=== PATIENT | male | born 1955 | race Caucasian/White ===

== ENCOUNTER 2017-03-23 07:15 | Day surgery (SDC) | payer MEDICARE ==
[~2017-03-23 07:15] MED LIST: KETOROLAC TROMETHAMINE 0.45% 4 DROP/0.4 ML DROPERETTE OS PRN
[2017-03-23] MEDS: CYCLOPENTOLATE 0.2%/PHENYLEPHRINE 1% OPH SOLN 2 ML OS PRN ×3 (07:44→08:04)
[2017-03-23] MEDS: TROPICAMIDE 1% OPH SOLN 3 ML OS PRN ×3 (07:44→08:04)
[2017-03-23] MEDS: BESIFLOXACIN HCL 0.6% OPH SUSP 5 ML BOTTLE OS PRN ×3 (07:44→08:48)
[2017-03-23] MEDS: TETRACAINE HCL 0.5% OPH SOLN 2 ML OS PRN ×3 (07:45→08:27)
[2017-03-23] MEDS ORDERED: PHENYLEPHRINE/KETOROLAC 1%-0.3% 4 ML VIAL ONE (07:51)
[2017-03-23] MEDS ORDERED: TRYPAN BLUE 0.06 % OPH SOLN 0.5 ML DISP.SYRIN ONE (07:51)
[2017-03-23] MEDS ORDERED: LIDOCAINE 1% INJ-PF (10 MG/ML) 30 ML SDV ONE (07:51)
[2017-03-23] MEDS ORDERED: CHONDR SU A NA/HYALUR INTRAOC KIT (SURGICARE) ONE (07:51)
[2017-03-23] MEDS ORDERED: MIDAZOLAM 2 MG/2 ML INJ ONE (07:59)
--- NOTE | 2017-03-26 20:42 | [facility] OPERATIVE REPORT E ---
[facility] Operative Report NAME: JIM MEJIA AGE: 61Y DATE OF SURGERY: 03/23/2017 ROOM: PREOPERATIVE DIAGNOSIS: CATARACT, LEFT EYE. POSTOPERATIVE DIAGNOSIS: CATARACT, LEFT EYE. OPERATION: Cataract extraction with intraocular lens implant of the left eye. SURGEON: SIMON WARE M.D. ANESTHESIA: Topical. PROCEDURE: After obtaining appropriate consent, the patient's left eye was prepped and draped in sterile fashion as well as the surgeon in a sterile manner and cataract surgery was started. First a paracentesis blade was used to make a small side-port incision. Viscoelastic was used to inflate the anterior chamber. Next a 2.4 mm incision was made with the paracentesis blade. A continuous capsulorrhexis incision was made using a cystotome and Utrata forceps. Following this, hydrodissection was carried out to make the lens fully loose and mobile and it was rotated 90 degrees. Following this, a xoykqr-bpy-ekdpeuf technique was used to phacoemulsify the lens with a CDE of 10.6. The remaining cortex was removed with irrigation/aspiration. Provisc was instilled into the capsular bag to inflate the bag. A SN60WF, 21.0 diopter lens was placed. The remaining viscoelastic material was removed with irrigation/aspiration. Following this, a 10-0 nylon suture was used to close the incision and it was found to be watertight. Vigamox was instilled in the eye and a protective shield was placed over the eye. The patient returned to the postoperative recovery in stable condition. DICTATING PHYSICIAN: SIMON WARE M.D. [id number] PHY#: [id number] ID: [id number] JOB#: [id number] ACCT: [id number] cc:SIMON WARE M.D. >
--- NOTE | 2017-03-26 21:32 | DISCHARGE SUMMARY E ---
Discharge Summary NAME: JIM MEJIA : 1955 AGE: 61Y ADMITTED: 03/23/2017 DISCHARGED: 03/23/2017 HISTORY: A 61-year-old patient who underwent cataract extraction of the left eye. DIAGNOSIS: Cataract, left eye. HOSPITAL COURSE AND DISCHARGE INSTRUCTIONS: He underwent surgery because he was having difficulty distinguishing signs, people, light, and cars. He should be on a regular diet. No bending at the waist. No heavy lifting. He should use his Besivance, Ilevro, and Durezol at 3:00 p.m. at 8:00 p.m. and sleep with a rigid shield, and I will see him for a 1-day postoperative tomorrow. DICTATING PHYSICIAN: SIMON WARE M.D. [id number] PHY#: [id number] ID: [id number] JOB#: [id number] ACCT: [id number] cc:SIMON WARE M.D. >
== END 2017-03-23 09:35 | disposition home or self-care (01) ==
LOC: SC 07:15
PROVIDERS: ATTEND Internal Medicine
PROC: 08RK3JZ Replacement of Left Lens with Synthetic Substitute, Percutaneous Approach (ICD-10-PCS; principal; 2017-03-23 08:30)
DX: H25.89 Other age-related cataract (principal); H25.811 Combined forms of age-related cataract, right eye; E11.319 Type 2 diabetes mellitus with unspecified diabetic retinopathy without macular edema; I10 Essential (primary) hypertension; F17.210 Nicotine dependence, cigarettes, uncomplicated; K21.9 Gastro-esophageal reflux disease without esophagitis; M19.90 Unspecified osteoarthritis, unspecified site; I51.9 Heart disease, unspecified; G57.90 Unspecified mononeuropathy of unspecified lower limb; Z79.82 Long term (current) use of aspirin; Z79.899 Other long term (current) drug therapy; Z79.84 Long term (current) use of oral hypoglycemic drugs
CPT/HCPCS: 66984; 82962; V2632; J2250; J3490 ×2; A9270; C9447; 142

== ENCOUNTER 2017-04-13 07:08 | Day surgery (SDC) | payer MEDICARE ==
[~2017-04-13 07:08] MED LIST changes: +KETOROLAC TROMETHAMINE 0.45% 4 DROP/0.4 ML DROPERETTE OD PRN; -KETOROLAC TROMETHAMINE 0.45% 4 DROP/0.4 ML DROPERETTE OS PRN
[2017-04-13] MEDS: CYCLOPENTOLATE 0.2%/PHENYLEPHRINE 1% OPH SOLN 2 ML OD PRN ×3 (07:47→08:05)
[2017-04-13] MEDS: TROPICAMIDE 1% OPH SOLN 3 ML OD PRN ×3 (07:47→08:05)
[2017-04-13] MEDS: TETRACAINE HCL 0.5% OPH SOLN 2 ML OD PRN ×3 (07:48→08:25)
[2017-04-13] MEDS: BESIFLOXACIN HCL 0.6% OPH SUSP 5 ML BOTTLE OD PRN ×4 (07:48→08:47)
[2017-04-13] MEDS ORDERED: EPINEPHRINE INJ/PF 1 MG/1 ML AMPULE ONE (07:57)
[2017-04-13] MEDS ORDERED: LIDOCAINE 1% INJ-PF (10 MG/ML) 30 ML SDV ONE (07:58)
[2017-04-13] MEDS ORDERED: CHONDR SU A NA/HYALUR INTRAOC KIT (SURGICARE) ONE (07:58)
[2017-04-13] MEDS ORDERED: MIDAZOLAM 2 MG/2 ML INJ ONE (08:01)
--- NOTE | 2017-04-13 20:48 | [facility] DISCHARGE SUMMARY E ---
[facility] Discharge Summary NAME: JIM MEJIA AGE: 61Y ADMITTED: 04/13/2017 DISCHARGED: 04/13/2017 HOSPITAL COURSE: This is a 61-year-old male who underwent cataract extraction of the right eye. DIAGNOSIS: CATARACT, RIGHT EYE. He underwent surgery because he was having difficulty reading. DISCHARGE INSTRUCTIONS: He is to be on a regular diet. No bending at his waist, no heavy lifting. He should use Besivance, Ilevro, and Durezol at 3 p.m. and 8 p.m. and sleep with a rigid shield. I will see him for his 1 day postoperative tomorrow. DICTATING PHYSICIAN: SIMON WARE M.D. [id number] PHY#: [id number] ID: [id number] JOB#: [id number] ACCT: [id number] cc:SIMON WARE M.D. >
--- NOTE | 2017-04-13 20:48 | [facility] OPERATIVE REPORT E ---
[facility] Operative Report NAME: JIM MEJIA AGE: 61Y DATE OF SURGERY: 04/13/2017 ROOM: PREOPERATIVE DIAGNOSIS: CATARACT, RIGHT EYE. POSTOPERATIVE DIAGNOSIS: CATARACT, RIGHT EYE. OPERATION: Cataract extraction with intraocular lens implant of the right eye. SURGEON: SIMON WARE M.D. ANESTHESIA: Topical. PROCEDURE: After obtaining appropriate consent, the patient's right eye was prepped and draped in sterile fashion as well as the surgeon in a sterile manner and cataract surgery was started. First a paracentesis blade was used to make a small side-port incision. Viscoelastic was used to inflate the anterior chamber. Next a 2.4 mm incision was made with the paracentesis blade. A continuous capsulorrhexis incision was made using a cystotome and Utrata forceps. Following this hydrodissection was carried out to make the lens fully loose and mobile and it was rotated 90 degrees. Following this, a kmpsiv-pjv-bkdxpnu technique was used to phacoemulsify the lens with a CDE of 5.60. The remaining cortex was removed with irrigation/aspiration. Provisc was instilled into the capsular bag to inflate the bag. A SN60WF, 29.0 diopter lens was placed. The remaining viscoelastic material was removed with irrigation/aspiration. Following this, a 10-0 nylon suture was used to close the incision and it was found to be watertight. Vigamox was instilled in the eye and a protective shield was placed over the eye. The patient returned to the postoperative recovery in stable condition. DICTATING PHYSICIAN: SIMON WARE M.D. [id number] PHY#: [id number] 2018 ID: [id number] JOB#: [id number] ACCT: [id number] cc:SIMON WARE M.D. >
== END 2017-04-13 09:32 | disposition home or self-care (01) ==
LOC: SC 07:08
PROVIDERS: ATTEND Internal Medicine
PROC: 08RJ3JZ Replacement of Right Lens with Synthetic Substitute, Percutaneous Approach (ICD-10-PCS; principal; 2017-04-13 08:30)
DX: H25.811 Combined forms of age-related cataract, right eye (principal); Z96.1 Presence of intraocular lens; E11.9 Type 2 diabetes mellitus without complications; K21.9 Gastro-esophageal reflux disease without esophagitis; F17.210 Nicotine dependence, cigarettes, uncomplicated; I10 Essential (primary) hypertension; Z79.899 Other long term (current) drug therapy; Z79.84 Long term (current) use of oral hypoglycemic drugs
CPT/HCPCS: 66984; 82962; V2632; J2250; J3490 ×2; A9270; J0171; 142

== ENCOUNTER → 2017-09-14 | Outpatient (CLI) | payer MEDICARE ==
--- NOTE | 2017-09-14 13:17 | RADIOLOGY REPORT (SQ) ---
EXAM DESCRIPTION: LUMBAR SPINE 2 VIEWS COMPLETED DATE/TIME: 09/14/2017 12:06 pm REASON FOR STUDY: OTHER DORSALGIA R07.81 PLEURODYNIA M54.89 OTHER DORSALGIA COMPARISON: None. NUMBER OF VIEWS: Two views. TECHNIQUE: AP and lateral radiographic images acquired of the lumbar spine. LIMITATIONS: None. FINDINGS: MINERALIZATION: Normal. SEGMENTATION: Normal. No transitional anatomy. ALIGNMENT: Normal. VERTEBRAE: Maintained height. No fracture or worrisome bone lesion. DISCS: High-grade disc space loss of height at L2-3, moderate disc space loss of height throughout th e remainder of the lumbar spine POSTERIOR ELEMENTS: Bilateral moderate facet arthropathy at L2-3, L3-4, L4-5. HARDWARE: None in the spine. PARASPINAL SOFT TISSUES: Normal. PELVIS: Not included in the field of view. Mild bilateral SI joint sclerosis. OTHER: No other significant finding. IMPRESSION: Diffuse degenerative disc changes as above. TECHNICAL DOCUMENTATION: JOB ID: [id number] [employer]- All Rights Reserved Reading location - IP/workstation name: [email or web address]
--- NOTE | 2017-09-14 14:36 | RADIOLOGY REPORT (SQ) ---
EXAM DESCRIPTION: CHEST PA/LATERAL COMPLETED DATE/TIME: 09/14/2017 12:06 pm REASON FOR STUDY: PLEURODYNIA COMPARISON: None. EXAM PARAMETERS: NUMBER OF VIEWS: two views TECHNIQUE: Digital Frontal and Lateral radiographic views of the chest acquired. RADIATION DOSE: NA LIMITATIONS: none FINDINGS: LUNGS AND PLEURA: No opacities, masses or pneumothorax. No pleural effusion. MEDIASTINUM AND HILAR STRUCTURES: No masses or contour abnormalities. HEART AND VASCULAR STRUCTURES: Heart normal size. No evidence for failure. BONES: No acute findings. HARDWARE: None in the chest. OTHER: No other significant finding. IMPRESSION: NO SIGNIFICANT RADIOGRAPHIC FINDING IN THE CHEST. TECHNICAL DOCUMENTATION: JOB ID: [id number] [employer]- All Rights Reserved Reading location - IP/workstation name: [email or web address]
== END ==
LOC: OD 11:36
PROVIDERS: ATTEND Physician Assistant Medical
DX: R07.81 Pleurodynia (principal); M54.5 Low back pain
CPT/HCPCS: 71046; 72100

== ENCOUNTER 2017-09-22 15:16 | Emergency (ER) | payer MEDICARE ==
[2017-09-22 16:43] LABS: ABSOLUTE BASOPHILS # (AUTO) 0.1 10^3/uL (0.0-0.2); ABSOLUTE EOSINOPHILS # (AUTO) 0.2 10^3/uL (0.0-0.6); ABSOLUTE LYMPHOCYTES (AUTO) 3.4 10^3/uL (0.5-4.7); ABSOLUTE MONOCYTES (AUTO) 0.9 10^3/uL (0.1-1.4); ABSOLUTE NEUT (AUTO) 5.9 10^3/uL (1.7-8.2); BASOPHILS % (AUTO) 0.8 % (0-2); EOSINOPHILS % (AUTO) 2.2 % (0-6); HEMATOCRIT 41.3 % (37.9-51.0); HEMOGLOBIN 14.1 g/dL (13.5-17.0); LYMPHOCYTES % (AUTO) 32.6 % (13-45); MEAN CORPUSCULAR HEMOGLOBIN 29.3 pg (27.0-33.4); MEAN CORPUSCULAR HGB CONC 34.1 g/dL (32.0-36.0); MEAN CORPUSCULAR VOLUME 86 fl (80-97); MONOCYTES % (AUTO) 8.3 % (3-13); PLATELET COUNT 233 10^3/uL (150-450); RED BLOOD COUNT 4.81 10^6/uL (4.35-5.55); RED CELL DISTRIBUTION WIDTH 13.5 % (11.5-14.0); SEGMENTED NEUTROPHILS % (AUTO) 56.1 % (42-78); TOTAL CELLS COUNTED % (AUTO) 100 %; WHITE BLOOD COUNT 10.5 10^3/uL (4.0-10.5)
--- NOTE | 2017-09-22 16:52 | ER Document Report ---
ED General - General Mode of Arrival: Ambulatory Information source: Patient TRAVEL OUTSIDE OF THE [place] IN LAST 30 DAYS: No <RASTA LOYOLA - Last Filed: 09/22/17 18:54> <VERN ESTEBAN - Last Filed: 09/22/17 19:24> - General Chief Complaint: Abdominal Pain Stated Complaint: ABDOMINAL PAIN Time Seen by Provider: 09/22/17 16:13 Notes: 62 y.o male with a PMHx of GERD, HTN, type 2 DM, and one tonsillectomy. Pt presents to the ED with worsening abd pain of onset 3 weeks ago. Pt reports that yesterday he decided to get blood work done by [facility]. Pt reports that his blood work resulted with high lipase enzymes indicating pancreatitis and was told to come to the ED. Pt states that his pain worsens after lying down for a while. He reports taking Ibuprofen for his pain without much relief. (RASTA LOYOLA) - Related Data Allergies/Adverse Reactions: No Known Allergies Allergy (Verified 03/23/17 07:39) Past Medical History - General Information source: Patient - Social History Smoking Status: Current Every Day Smoker Cigarette use (# per day): Yes - 3/4 pack Chew tobacco use (# tins/day): No Smoking Education Provided: Yes Frequency of alcohol use: None Drug Abuse: None Family History: Other - Unknown - Past Medical History Cardiac Medical History: Reports: Hx Hypertension Denies: Hx Heart Attack Pulmonary Medical History: Denies: Hx Asthma Neurological Medical History: Denies: Hx Cerebrovascular Accident, Hx Seizures GI Medical History: Reports: Hx Hiatal Hernia. Denies: Hx Hepatitis, Hx Ulcer Infectious Medical History: Denies: Hx Hepatitis Past Surgical History: Denies: Hx Open Heart Surgery, Hx Pacemaker <RASTA LOYOLA - Last Filed: 09/22/17 18:54> Review of Systems - Review of Systems Constitutional: See HPI, Other - abnormal lab results EENT: No symptoms reported Cardiovascular: No symptoms reported Respiratory: No symptoms reported Gastrointestinal: See HPI, Abdominal pain Genitourinary: No symptoms reported Male Genitourinary: No symptoms reported Musculoskeletal: No symptoms reported Skin: No symptoms reported Hematologic/Lymphatic: No symptoms reported Neurological/Psychological: No symptoms reported -: Yes All other systems reviewed and negative <RASTA LOYOLA - Last Filed: 09/22/17 18:54> Physical Exam <RASTA LOYOLA - Last Filed: 09/22/17 18:54> <VERN ESTEBAN - Last Filed: 09/22/17 19:24> - Vital signs Vitals: Temp Pulse BP Pulse Ox 98.0 F 57 L 150/86 H 96 09/22/17 15:43 09/22/17 15:43 09/22/17 15:43 09/22/17 15:43 - Notes Notes: General: Alert, appears well. HEENT: Normocephalic. Atraumatic. PERRL. Extraocular movements intact. Oropharynx clear. Neck: Supple. Non-tender. Respiratory: No respiratory distress. Clear and equal breath sounds bilaterally. Cardiovascular: Regular rate and rhythm. Abdominal: Obese, soft. No distension. Normal Bowel Sounds. Exquisitely tender to palpation over the LT anterior inferior ribs and inferior sternum. After discovering the area of his tenderness and going back to abd, there was no tenderness to palpation under the ribs. Back: Non-tender. No deformity or step off. Tenderness to palpation on posterior chest wall all the way around to the thoracic spine around T4-T8, although most tender anteriorly as mentioned above. Extremities: Moves all four extremities. Upper extremities: Normal inspection. Normal ROM. Lower extremities: Normal inspection. No edema. Normal ROM. Neurological: Normal cognition. AAOx4. Normal speech. Psychological: Normal affect. Normal Mood. Skin: Warm. Dry. Normal color. (RASTA LOYOLA) Course - Laboratory Result Diagrams: 09/22/17 16:30 09/22/17 16:30 <RASTA LOYOLA - Last Filed: 09/22/17 18:54> - Laboratory Result Diagrams: 09/22/17 16:30 09/22/17 16:30 <VERN ESTEBAN - Last Filed: 09/22/17 19:24> - Re-evaluation Re-evalutation: 09/22/17 18:43 After talking to patient about the relatedness of his pain to musculoskeletal pain, he admits lifting furniture into the back of his truck about 3 days before onset of his pain. Pt understands diagnoses and has no further questions at this time. (RASTA LOYOLA) 09/22/17 19:14 The patient has reproducible musculoskeletal chest wall pain with an identifiable trigger which involved helping put a couch on a pickup truck bed about 4 days before the pain started. Double contrast a CT scan of the abdomen and pelvis was unremarkable. The patient's lipase today is less than one half the upper limit of normal at this lab. The records from [facility] yesterday showed a lipase that was 4.8 times the upper limit of normal. That is the only thing that does not make sense in this entire evaluation. He will be given copies of his lab work to follow-up with his primary care provider next week. He will be prescribed pain medication to take for his pain which is not responding to Motrin 800 mg dosing. 09/22/17 19:24 The patient's blood pressure was elevated at discharge. He does have hypertension and is on medication. He has been here since early this morning. Is advised to take his medications when he gets home, check his blood pressures , and follow-up with his primary care doctor to discuss his blood pressure if it remains elevated. (VERN ESTEBAN) - Vital Signs Vital signs: Temp Pulse Resp BP Pulse Ox 98.1 F 55 L 186/83 H 96 09/22/17 19:12 09/22/17 19:12 09/22/17 19:12 09/22/17 19:12 - Laboratory Laboratory results interpreted by nj: 09/22/17 09/22/17 09/22/17 16:30 16:30 17:07 Carbon Dioxide 34 H Glucose 167 H Creatine Kinase 40 L Urine Protein 100 H Urine Ketones TRACE H Urine Urobilinogen 4.0 H Discharge <RASTA LOYOLA - Last Filed: 09/22/17 18:54> <VERN ESTEBAN - Last Filed: 09/22/17 19:24> - Discharge Clinical Impression: Rib pain on left side Condition: Stable Disposition: HOME, SELF-CARE Additional Instructions: Rib Muscle Strain: You have strained the muscles in your left thorax. This often occurs with strenuous exertion, or during an injury that suddenly stretches the muscle. The seriousness of a strain varies. Some strains heal within days, others cause problems for months. X-rays cannot show a muscle strain. X-rays are taken only if symptoms suggest that a fracture could be present. The usual treatment of a muscle strain is rest. Take the pain medication as prescribed if needed. Moist heat to the painful rib muscles may be helpful. Try sleeping in an easy chair to see if that helps the discomfort. Follow-up with your doctor next week for reevaluation and take copies of your lab work. RETURN TO THE EMERGENCY ROOM IF ANY NEW OR WORSENING SYMPTOMS. Prescriptions: Oxycodone HCl/Acetaminophen [Percocet 5-325 mg Tablet] 1 - 2 tab PO ASDIR PRN # 20 tablet PRN Reason: Scribe Attestation: 09/22/17 18:01 I personally performed the services described in the documentation, reviewed and edited the documentation which was dictated to the scribe in my presence, and it accurately records my words and actions. (VERN ESTEBAN) Scribe Documentation - Scribe Written by Corine:: Corine Gabriel 09/22/17 1719 acting as scribe for :: Shweta <RASTA LOYOLA - Last Filed: 09/22/17 18:54>
[2017-09-22 16:56] LABS: ALANINE AMINOTRANSFERASE 35 U/L (21-72); ALBUMIN 4.2 g/dL (3.5-5.0); ALKALINE PHOSPHATASE 68 U/L (38-126); ANION GAP 11 (5-19); ASPARTATE AMINO TRANSFERASE 32 U/L (17-59); BILIRUBIN,DIRECT 0.4 mg/dL (0.0-0.4); BILIRUBIN,TOTAL 0.5 mg/dL (0.2-1.3); BLOOD UREA NITROGEN 13 mg/dL (7-20); CALCIUM 9.4 mg/dL (8.4-10.2); CARBON DIOXIDE 34 mmol/L (22-30); CHLORIDE 100 mmol/L (98-107); GLUCOSE 167 mg/dL (75-110); LIPASE 137.4 U/L (23-300); POTASSIUM 3.7 mmol/L (3.6-5.0); SODIUM 144.6 mmol/L (137-145); TOTAL PROTEIN 7.3 g/dL (6.3-8.2)
[2017-09-22] MEDS ORDERED: KETOROLAC TROMETHAMINE INJ/PF 30 MG/1 ML SDV IV ONE (17:17)
[2017-09-22] MEDS ORDERED: NORMAL SALINE 1000 ML 1,000 ML IV ONE (17:17)
[2017-09-22 17:19] LABS: APPEARANCE,URINE CLEAR; BILIRUBIN,URINE NEGATIVE (NEGATIVE); GLUCOSE, URINE NEGATIVE (NEGATIVE); KETONES,URINE TRACE mg/dL (NEGATIVE); LEUKOCYTE ESTERASE,URINE NEGATIVE (NEGATIVE); NITRITE,URINE NEGATIVE (NEGATIVE); PROTEIN,URINE 100 mg/dL (NEGATIVE)
[2017-09-22 17:23] LABS: COLOR,URINE YELLOW
[2017-09-22 17:39] LABS: CREATINE KINASE 40 U/L (55-170)
[2017-09-22 19:20] VITALS: BP 186/83
== END 2017-09-22 19:19 | disposition home or self-care (01) ==
LOC: ER 15:16
DX: R07.81 Pleurodynia (principal); R10.9 Unspecified abdominal pain; R74.8 Abnormal levels of other serum enzymes; I10 Essential (primary) hypertension; E11.9 Type 2 diabetes mellitus without complications; F17.210 Nicotine dependence, cigarettes, uncomplicated
CPT/HCPCS: 99284; 96361; 96374; 36415; 82550; 83690; 85025; 80053; 81001; 82565; 74160; J1885; J7030

== ENCOUNTER → 2017-09-22 | Outpatient (CLI) | payer MEDICARE ==
--- NOTE | 2017-09-22 08:49 | RADIOLOGY REPORT (SQ) ---
EXAM DESCRIPTION: CT ABDOMEN WITH IV ORAL CONT COMPLETED DATE/TIME: 09/22/2017 8:39 am REASON FOR STUDY: LLQ PAIN (R10.32), ABD PAIN (R10.9), LUQ PAIN (R10.12) R10.12 LEFT UPPER QUADRANT PAIN R10.9 UNSPECIFIED ABDOMINAL PAIN R10.32 LEFT LOWER QUADRANT PAIN COMPARISON: None. TECHNIQUE: CT scan of the abdomen performed with intravenous and with oral contrast using helical sc anning technique with dynamic intravenous contrast injection. Images reviewed with lung, soft tissue, and bone windows. Reconstructed coronal and sagittal MPR images reviewed. Delayed images for evaluat ion of the urinary system also acquired and evaluated. All images stored on PACS. All CT scanners at this facility use dose modulation, iterative reconstruc tion, and/or weight based dosing when appropriate to reduce radiation dose to as low as reasonably ac hievable (ALARA). [facility]: Dose Right [facility]: CareDose [facility]: Dose Right [facility]: Teradose 4D [facility]: Vidible CONTRAST TYPE AND DOSE: contrast/concentration: Isovue 370.00 mg/ml; Total Contrast Delivered: 99.0 ml; Total Saline Delivered: 72.0 ml RENAL FUNCTION: Creatinine 1.0. RADIATION DOSE: CT Rad equipment meets quality standard of care and radiation dose reduction techniq ues were employed. CTDIvol: 16.4 - 19.4 mGy. DLP: 1448 mGy-cm. . LIMITATIONS: None. FINDINGS: LOWER CHEST: No significant findings. No nodules or infiltrates. LIVER: Normal size. No masses. No dilated ducts. SPLEEN: Normal size. No focal lesions. PANCREAS: No masses. No significant calcifications. No adjacent inflammation or peripancreatic fluid collections. Pancreatic duct not dilated. GALLBLADDER: No identified stones by CT criteria. No inflammatory changes to suggest cholecystitis. ADRENAL GLANDS: No significant masses or asymmetry. RIGHT KIDNEY AND URETER: No solid masses. No significant calcifications. No hydronephrosis or hyd roureter. LEFT KIDNEY AND URETER: No solid masses. No significant calcifications. No hydronephrosis or hydr oureter. AORTA AND VESSELS: Vascular calcifications. No aneurysm. No dissection. Renal arteries, SMA, celiac without stenosis. RETROPERITONEUM: No retroperitoneal adenopathy, hemorrhage or masses. BOWEL AND PERITONEAL CAVITY: No masses or inflammatory changes. No free fluid or peritoneal masses. APPENDIX: Not visualized. ABDOMINAL WALL: No masses. No hernias. BONES: No significant or acute findings. Degenerative changes in the spine. OTHER: No other significant finding. IMPRESSION: NORMAL CT OF THE ABDOMEN WITH INTRAVENOUS CONTRAST. TECHNICAL DOCUMENTATION: JOB ID: [id number] Quality ID # [id number]: Final reports with documentation of one or more dose reduction techniques (e.g., Au tomated exposure control, adjustment of the mA and/or kV according to patient size, use of iterative reconstruction technique) 2010 [employer]- All Rights Reserved Reading location - IP/workstation name: [email or web address]
== END ==
LOC: RAD 07:27
PROVIDERS: ATTEND Physician Assistant Medical
DX: R10.12 Left upper quadrant pain (principal); R10.9 Unspecified abdominal pain; R10.32 Left lower quadrant pain
CPT/HCPCS: 74160; 82565

== ENCOUNTER → 2017-10-04 | Outpatient (CLI) | payer MEDICARE ==
--- NOTE | 2017-10-04 17:17 | RADIOLOGY REPORT (SQ) ---
EXAM DESCRIPTION: CT CHEST WITH COMPLETED DATE/TIME: 10/04/2017 3:17 pm REASON FOR STUDY: R07.9 CHEST PAIN, UNSPECIFIED R07.9 CHEST PAIN, UNSPECIFIED COMPARISON: CT abdomen 09/22/2017. Chest films 09/14/2017. TECHNIQUE: CT scan of the chest performed using helical scanning technique with dynamic intravenous contrast injection. Images reviewed with lung, soft tissue and bone windows. Reconstructed coronal and sagittal MPR images reviewed. All images stored on PACS. All CT scanners at this facility use dose modulation, iterative reconstruction, and/or weight based d osing when appropriate to reduce radiation dose to as low as reasonably achievable (ALARA). [facility]: Dose Right [facility]: CareDose [facility]: Dose Right [facility]: Teradose 4D [facility]: Enclarity CONTRAST TYPE AND DOSE: contrast/concentration: Isovue 370.00 mg/ml; Total Contrast Delivered: 80.0 ml; Total Saline Delivered: 55.0 ml RENAL FUNCTION: Creatinine 0.81 RADIATION DOSE: CT Rad equipment meets quality standard of care and radiation dose reduction techniq ues were employed. CTDIvol: 16.4 mGy. DLP: 695 mGy-cm. . LIMITATIONS: None. FINDINGS: LUNGS AND PLEURA: Mild areas of linear scar in the right middle lobe and lingula. Mild gr ound-glass subpleural densities in the upper lobes. Acuity and significance indeterminate, but poten tially reflecting active treatable disease. No pleural disease. No abnormal gas collections. HILAR AND MEDIASTINAL STRUCTURES: No identified masses or abnormal nodes. HEART AND VASCULAR STRUCTURES: Cardiac enlargement. No pericardial effusion. Marked coronary calcif ication. No aortic aneurysm or dissection. No central pulmonary embolus. HARDWARE: None in the chest. UPPER ABDOMEN: Small right adrenal adenoma, subcentimeter. Otherwise unremarkable upper abdominal st ructures. THYROID AND OTHER SOFT TISSUES: No masses. No adenopathy. BONES: No significant finding. OTHER: No other significant finding. IMPRESSION: 1. Mild ground-glass densities in the upper lobes, potentially reflecting active lung d isease. Otherwise indeterminate. Lungs otherwise look clear. No typical consolidating pneumonia. 2. No aortic aneurysm or dissection or gross central pulmonary embolus. 3. Cardiac enlargement and coronary calcification. TECHNICAL DOCUMENTATION: JOB ID: [id number] Quality ID # [id number]: Final reports with documentation of one or more dose reduction techniques (e.g., Au tomated exposure control, adjustment of the mA and/or kV according to patient size, use of iterative reconstruction technique) 2010 [employer]- All Rights Reserved Reading location - IP/workstation name: [email or web address]
== END ==
LOC: RAD 15:05
PROVIDERS: ATTEND Physician Assistant Medical
DX: R07.9 Chest pain, unspecified (principal)
CPT/HCPCS: 71260

== ENCOUNTER 2018-03-26 07:46 | Day surgery (SDC) | payer MEDICARE ==
[~2018-03-26 07:46] MED LIST changes: -KETOROLAC TROMETHAMINE 0.45% 4 DROP/0.4 ML DROPERETTE OD PRN; +PROPOFOL INJ 200 MG/20 ML VIAL IV ONE
[2018-03-26 10:07] VITALS: BP 154/72
--- NOTE | 2018-03-26 12:53 | Operative Report ---
Operative Report DATE OF SURGERY: 03/26/18 Operative Report: The risks, benefits and alternatives of the procedure including the risk of bleeding, perforation requiring surgery are explained to the patient in detail and informed consent is obtained. The patient is taken back to the endoscopy suite and placed in the left, lateral decubital position. Timeout was called. Propofol medication is administered. A rectal examination is done which did not reveal any masses, tears or fissures. An Olympus videoscope was inserted into the patient's rectum. The scope was then carefully advanced all the way to the cecum. The cecum was identified by the usual anatomical landmarks including the ileocecal valve as well as the appendiceal office. Photodocumentation is obtained. The scope was then sequentially pulled back via the various segments of the colon including the ascending colon, hepatic flexure, transverse colon, splenic flexure, descending colon and finally into the rectosigmoid portions of the colon. Retroflexion maneuvers performed. PREOPERATIVE DIAGNOSIS: Gastroesophageal reflux disease, personal history of polyps POSTOPERATIVE DIAGNOSIS: Possible lipoma in the transverse colon area status post biopsy biopsies to confirm. Rectal polyps x2 removed via snare polypectomy. Internal hemorrhoids. Gastritis status post biopsy rule out Helicobacter pylori. Esophagitis status post biopsy rule out Casas's esophagus OPERATION: Colonoscopy with snare polypectomy. Colonoscopy with biopsy. EGD with biopsy SURGEON: TICO SMALLWOOD ANESTHESIA: LMAC TISSUE REMOVED OR ALTERED: As noted above. COMPLICATIONS: None. ESTIMATED BLOOD LOSS: None. INTRAOPERATIVE FINDINGS: As noted above. PROCEDURE: Patient tolerated the procedure well. No immediate postprocedure complications are noted. Patient discharged in good condition. Discharge date 03/27/2018. Discharge diet: Regular. Discharge activity: Regular. 2-3-week follow-up to discuss findings. Patient is instructed to call the office or proceed to the emergency room should there be any further problems or questions. 3-year surveillance colonoscopy. We will wait on the pathology.
== END 2018-03-26 10:10 | disposition home or self-care (01) ==
LOC: END 07:46
PROVIDERS: ATTEND Internal Medicine Gastroenterology
DX: Z12.11 Encounter for screening for malignant neoplasm of colon (principal); K21.0 Gastro-esophageal reflux disease with esophagitis; K63.5 Polyp of colon; D17.79 Benign lipomatous neoplasm of other sites; K29.50 Unspecified chronic gastritis without bleeding; K64.8 Other hemorrhoids; Z86.010 Personal history of colon polyps; Z80.0 Family history of malignant neoplasm of digestive organs; E78.5 Hyperlipidemia, unspecified; I25.10 Atherosclerotic heart disease of native coronary artery without angina pectoris; E11.9 Type 2 diabetes mellitus without complications; I10 Essential (primary) hypertension; G70.9 Myoneural disorder, unspecified
CPT/HCPCS: 43239; 45380; 45385; 82962; 88305 ×2; J2704; 813

== ENCOUNTER → 2019-03-29 | Outpatient (CLI) | payer MEDICARE ==
--- NOTE | 2019-03-29 09:02 | RADIOLOGY REPORT (SQ) ---
EXAM DESCRIPTION: U/S ABDOMEN LIMITED W/O DOP COMPLETED DATE/TIME: 03/29/2019 7:50 am REASON FOR STUDY: CHRONIC HEP C (B18.2) B18.2 CHRONIC VIRAL HEPATITIS C COMPARISON: None. TECHNIQUE: Dynamic and static grayscale images acquired of the abdomen and recorded on PACS. Additio nal selected color Doppler and spectral images recorded. LIMITATIONS: None. FINDINGS: PANCREAS: The visualized portions of the pancreas appear normal. LIVER: There is a heterogeneous hypoechoic mass in the right hepatic lobe that measures approximate 4 .7 x 4.1 x 4.1 cm. LIVER VASCULATURE: Normal directional flow of the main portal vein and hepatic veins. GALLBLADDER: There is a 2.9 cm calculus within the gallbladder lumen. The gallbladder wall is normal and measures 2.1 mm in thickness. There is no pericholecystic fluid. ULTRASOUND-DETECTED GRACIA'S SIGN: Negative. INTRAHEPATIC DUCTS AND COMMON DUCT: The common bile duct measures 4.2 mm in diameter. INFERIOR VENA CAVA: Normal flow. AORTA: No aneurysm. RIGHT KIDNEY: The kidney measures 11.4 cm in length. There are several echogenic foci in the kidney that could represent nonobstructive calculi. PERITONEAL AND RIGHT PLEURAL SPACE: No ascites or effusions. OTHER: No other findings. IMPRESSION: 1. Heterogeneous hypoechoic mass in the right hepatic lobe that measures approximately 4 .7 x 4.1 x 4.1 cm. Correlation with a contrast-enhanced liver protocol CT or MRI is recommended for further evaluation. 2. Cholelithiasis without other ancillary findings to indicate an acute cholecystitis. 3. Echogenic non-shadowing foci in the kidney that measure up to 7 mm in diameter could represent in spissated fat or nonobstructive calculi. TECHNICAL DOCUMENTATION: JOB ID: [id number] [employer]- All Rights Reserved Reading location - IP/workstation name: [email or web address]
== END ==
LOC: RAD 07:10
PROVIDERS: ATTEND Internal Medicine Gastroenterology
DX: B18.2 Chronic viral hepatitis C (principal); K80.20 Calculus of gallbladder without cholecystitis without obstruction
CPT/HCPCS: 76705

== ENCOUNTER → 2019-04-22 | Outpatient (CLI) | payer MEDICARE ==
--- NOTE | 2019-04-22 17:25 | RADIOLOGY REPORT (SQ) ---
EXAM DESCRIPTION: CT ABDOMEN COMBO COMPLETED DATE/TIME: 04/22/2019 1:30 pm REASON FOR STUDY: K76.89 OTHER SPECIFIED DISEASES OF LIVER K76.89 OTHER SPECIFIED DISEASES OF LIVER COMPARISON: 09/22/2017 TECHNIQUE: CT scan of the abdomen performed with and without intravenous contrast, and without oral contrast. Contrasted imaging performed using helical scanning technique with dynamic intravenous cont rast injection. Images reviewed with lung, soft tissue, and bone windows. Reconstructed coronal and s agittal MPR images reviewed. Delayed images for evaluation of the urinary system also acquired and ev aluated. All images stored on PACS. All CT scanners at this facility use dose modulation, iterative reconstruction, and/or weight based d osing when appropriate to reduce radiation dose to as low as reasonably achievable (ALARA). [facility]: Dose Right [facility]: CareDose [facility]: Dose Right [facility]: Teradose 4D [facility]: [employer] CONTRAST TYPE AND DOSE: contrast/concentration: Isovue 350.00 mg/ml; Total Contrast Delivered: 65.0 ml; Total Saline Delivered: 48.0 ml RENAL FUNCTION: Creatinine 1.1 RADIATION DOSE: CT Rad equipment meets quality standard of care and radiation dose reduction techniq ues were employed. CTDIvol: 18.6 - 78.9 mGy. DLP: 3752 mGy-cm.. LIMITATIONS: None. FINDINGS: NONCONTRASTED IMAGING: Vascular calcifications in the right kidney. POSTCONTRASTED IMAGING: LOWER CHEST: No significant findings. No nodules or infiltrates. LIVER: There is slightly ill-defined 6 cm mass in the right lobe of the liver that shows fairly rapid heterogeneous enhancement that washes out fairly rapidly. SPLEEN: Normal size. No focal lesions. PANCREAS: No masses. No significant calcifications. No adjacent inflammation or peripancreatic fluid collections. Pancreatic duct not dilated. GALLBLADDER: No identified stones by CT criteria. No inflammatory changes to suggest cholecystitis. ADRENAL GLANDS: No significant masses or asymmetry. RIGHT KIDNEY AND URETER: No solid masses. Vascular calcifications. No hydronephrosis or hydrouret er. LEFT KIDNEY AND URETER: No solid masses. No significant calcifications. No hydronephrosis or hydr oureter. AORTA AND VESSELS: No aneurysm. No dissection. Renal arteries, SMA, celiac without stenosis. RETROPERITONEUM: No retroperitoneal adenopathy, hemorrhage or masses. BOWEL AND PERITONEAL CAVITY: Mild diverticulosis with no associated inflammation. APPENDIX: A portion the appendix is seen on the final image and appears normal. ABDOMINAL WALL: No masses. No hernias. BONES: Degenerative changes in the lumbar spine. No osseous lesions are seen. OTHER: No other significant finding. IMPRESSION: 1. Slightly ill-defined 6 cm heterogeneously enhancing mass in the right lobe of the li armando that enhances rapidly and shows fairly rapid washout. Concerning for neoplasm. 2. Vascular calcification in the right kidney. 3. Mild diverticulosis coli. TECHNICAL DOCUMENTATION: JOB ID: [id number] Quality ID # [id number]: Final reports with documentation of one or more dose reduction techniques (e.g., Au tomated exposure control, adjustment of the mA and/or kV according to patient size, use of iterative reconstruction technique) 2010 [employer]- All Rights Reserved Reading location - IP/workstation name: [email or web address]
== END ==
LOC: RAD 12:07
PROVIDERS: ATTEND Internal Medicine Gastroenterology
DX: K76.89 Other specified diseases of liver (principal); K57.30 Diverticulosis of large intestine without perforation or abscess without bleeding
CPT/HCPCS: 74170; 82565

== ENCOUNTER 2020-04-29 07:29 | Inpatient (IN) | payer MEDICARE ==
--- NOTE | 2020-04-29 08:23 | RADIOLOGY REPORT (SQ) ---
EXAM DESCRIPTION: CHEST SINGLE VIEW IMAGES COMPLETED DATE/TIME: 04/29/2020 8:13 am REASON FOR STUDY: Shortness of breath COMPARISON: None. EXAM PARAMETERS: NUMBER OF VIEWS: One view. TECHNIQUE: Single frontal radiographic view of the chest acquired. RADIATION DOSE: NA LIMITATIONS: None. FINDINGS: LUNGS AND PLEURA: Mild interstitial prominence was patchy left retrocardiac opacities. No pleural effusion. No pneumothorax. MEDIASTINUM AND HILAR STRUCTURES: No masses. Contour normal. HEART AND VASCULAR STRUCTURES: Enlarged cardiac silhouette with central vascular congestion. BONES: No acute findings. HARDWARE: None in the chest. OTHER: No other significant finding. IMPRESSION: Enlarged cardiac silhouette with central vascular congestion and mild interstitial edema . Patchy left retrocardiac opacities possibly asymmetric edema, atelectasis or infection. TECHNICAL DOCUMENTATION: JOB ID: [id number] 2010 [employer]- All Rights Reserved Reading location - IP/workstation name: [email or web address]
--- NOTE | 2020-04-29 08:53 | ER Document Report ---
Entered by DONOVAN JETT SCRIBE 04/29/20 0801 Acting as scribe for:VERN ESTEBAN MD ED General - General Chief Complaint: Shortness Of Breath Stated Complaint: SHORTNESS OF BREATH Time Seen by Provider: 04/29/20 07:58 Primary Care Provider: JARED JENNINGS MD [Primary Care Provider] - Follow up as needed Mode of Arrival: Ambulatory Information source: Patient Notes: This 64 year old male patient with a history of hypertension, hyperlipidemia, type 2 diabetes mellitus, hepatitis C and liver cell carcinoma presents to the ED today with complaints of dyspnea that started at midnight. Patient states that he woke up with trouble breathing in and he "can't seem to fill it up." He also reports a cough for the past x3 weeks ever since he quit smoking. Denies fever or leg swelling. Patient mentions that he was started on Warfarin x6 month ago. TRAVEL OUTSIDE OF THE [place] IN LAST 30 DAYS: No - Related Data Allergies/Adverse Reactions: No Known Allergies Allergy (Verified 03/26/18 07:58) Past Medical History - General Information source: Patient, [facility] Records - Social History Smoking Status: Former Smoker Cigarette use (# per day): No Chew tobacco use (# tins/day): No Smoking Education Provided: No Family History: Reviewed & Not Pertinent, Other - Unknown - Past Medical History Cardiac Medical History: Reports: Hx Hypercholesterolemia, Hx Hypertension Pulmonary Medical History: Reports: Hx COPD Endocrine Medical History: Reports: Hx Diabetes Mellitus Type 2 Malignancy Medical History: Reports Hx Liver Cancer GI Medical History: Reports: Hx Hepatitis - C, Hx Hiatal Hernia Musculoskeletal Medical History: Reports Hx Arthritis Infectious Medical History: Reports: Hx Hepatitis - C Past Surgical History: Reports: Hx Cardiac Catheterization - X2, no stents, Hx Tonsillectomy - one tonsil, Other - cyst removal - Immunizations Hx Diphtheria, Pertussis, Tetanus Vaccination: Yes - NOT UP TO DATE Review of Systems - Review of Systems Constitutional: See HPI. denies: Fever EENT: No symptoms reported Cardiovascular: See HPI, Dyspnea Respiratory: See HPI, Cough. denies: Sputum Gastrointestinal: No symptoms reported Genitourinary: No symptoms reported Male Genitourinary: No symptoms reported Musculoskeletal: See HPI. denies: Leg swelling Skin: No symptoms reported Hematologic/Lymphatic: No symptoms reported Neurological/Psychological: No symptoms reported -: Yes All other systems reviewed and negative Physical Exam - Vital signs Vitals: Temp Pulse Resp BP Pulse Ox 97.6 F 79 20 173/90 H 99 04/29/20 07:36 04/29/20 07:36 04/29/20 07:36 04/29/20 07:36 04/29/20 07:36 - General General appearance: Alert, Anxious In distress: None - HEENT Head: Normocephalic, Atraumatic Eyes: Normal Pupils: PERRL - Respiratory Respiratory status: No respiratory distress Chest status: Nontender Breath sounds: Normal Chest palpation: Normal - Cardiovascular Rhythm: Irregularly irregular Heart sounds: Normal auscultation Murmur: No Friction rub: No Gallop: None auscultated - Abdominal Inspection: Obese Distension: No distension Bowel sounds: Normal Tenderness: Nontender - Abdomen soft Organomegaly: No organomegaly - Back Back: Normal, Nontender - Extremities General upper extremity: Normal inspection General lower extremity: Normal inspection. No: Edema - Neurological Neuro grossly intact: Yes Orientation: AAOx4 [place] Coma Scale Eye Opening: Spontaneous [place] Coma Scale Verbal: Oriented [place] Coma Scale Motor: Obeys Commands Romulo Coma Scale Total: 15 - Psychological Associated symptoms: Normal affect, Angry, Anxious - Skin Skin Temperature: Warm Skin Moisture: Dry Skin Color: Normal Course - Re-evaluation Re-evalutation: 04/29/20 10:20 Patient continues to report that his breathing feels like he is restricted and difficulty breathing. Chest x-ray shows enlarged heart with central vascular congestion and mild interstitial edema. Patchy left retrocardiac opacities are possibly asymmetric edema or infection. D-dimer is barely above the normal range at 0.52 and INR is 2.87 04/29/20 11:57 The patient was evaluated during the global COVID-19 pandemic and that diagnosis was suspected/considered upon their initial presentation. Their evaluation, treatment and testing was consistent with current guidelines for patients who present with complaints or symptoms that may be related to COVID-19. 04/29/20 11:57 The patient's BNP is elevated [place] 4030, this is most likely mild congestive heart failure causing his respiratory difficulty. - Vital Signs Vital signs: Temp Pulse Resp BP Pulse Ox 98.1 F 79 33 H 173/101 H 97 04/29/20 12:21 04/29/20 07:36 04/29/20 12:01 04/29/20 12:01 04/29/20 12:01 - Laboratory Result Diagrams: 04/29/20 08:22 04/29/20 08:22 Laboratory results interpreted by me: 04/29/20 04/29/20 04/29/20 08:22 08:22 08:22 RBC 3.89 L Hgb 10.7 L Hct 32.0 L RDW 15.7 H Lymph % (Auto) 7.3 L Seg Neutrophils % 84.2 H ESR 51 H PT D-Dimer Glucose 125 H ALT 54 H NT-Pro-B Natriuret Pep Total Protein 8.5 H Urine Protein Urine Urobilinogen 04/29/20 04/29/20 04/29/20 08:22 08:22 09:15 RBC Hgb Hct RDW Lymph % (Auto) Seg Neutrophils % ESR PT 30.0 H D-Dimer 0.52 H Glucose ALT NT-Pro-B Natriuret Pep 4030 H Total Protein Urine Protein 100 H Urine Urobilinogen 4.0 H - Diagnostic Test Radiology reviewed: Image reviewed, Reports reviewed - Enlarged cardiac silhouette with central vascular congestion and mild interstitial edema. Patchy left retrocardiac opacities possibly asymmetric edema, atelectasis or infection. - EKG Interpretation by Me EKG shows normal: [place], Intervals, QRS Complexes. abnormal: ST-T Waves - Diffuse repolarization abnormality Rate: Normal - 78 Rhythm: A.Fib When compared to previous EKG there are: Previous EKG unavailable - Consults Dr. Joyce Time consulted: 12:20 Consulted provider: will come to ER Discharge - Discharge Clinical Impression: Congestive heart failure (CHF) Qualifiers: Heart failure type: unspecified Heart failure chronicity: acute Qualified Code(s): I50.9 - Heart failure, unspecified Condition: Stable Disposition: ADMITTED INPATIENT Admitting Provider: Isiah (Hospitalist) Unit Admitted: Telemetry Referrals: JARED JENNINGS MD [Primary Care Provider] - Follow up as needed I personally performed the services described in the documentation, reviewed and edited the documentation which was dictated to the scribe in my presence, and it accurately records my words and actions.
[2020-04-29 08:57] LABS: ABSOLUTE EOSINOPHILS # (AUTO) 0.1 10^3/uL (0.0-0.6); ABSOLUTE LYMPHOCYTES (AUTO) 0.6 10^3/uL (0.5-4.7); ABSOLUTE MONOCYTES (AUTO) 0.6 10^3/uL (0.1-1.4); ABSOLUTE NEUT (AUTO) 7.1 10^3/uL (1.7-8.2); BASOPHILS % (AUTO) 0.5 % (0-2); EOSINOPHILS % (AUTO) 1.4 % (0-6); HEMOGLOBIN 10.7 g/dL (13.5-17.0); LYMPHOCYTES % (AUTO) 7.3 % (13-45); MEAN CORPUSCULAR HEMOGLOBIN 27.6 pg (27.0-33.4); MEAN CORPUSCULAR HGB CONC 33.5 g/dL (32.0-36.0); MEAN CORPUSCULAR VOLUME 82 fl (80-97); MONOCYTES % (AUTO) 6.6 % (3-13); PLATELET COUNT 257 10^3/uL (150-450); RED BLOOD COUNT 3.89 10^6/uL (4.35-5.55); RED CELL DISTRIBUTION WIDTH 15.7 % (11.5-14.0); SEGMENTED NEUTROPHILS % (AUTO) 84.2 % (42-78); TOTAL CELLS COUNTED % (AUTO) 100 %; WHITE BLOOD COUNT 8.4 10^3/uL (4.0-10.5)
[2020-04-29 09:18] LABS: ALBUMIN 4.2 g/dL (3.5-5.0); ALKALINE PHOSPHATASE 117 U/L (38-126); ANION GAP 12 (5-19); ASPARTATE AMINO TRANSFERASE 49 U/L (17-59); BILIRUBIN,DIRECT 0.3 mg/dL (0.0-0.4); BILIRUBIN,TOTAL 0.6 mg/dL (0.2-1.3); BLOOD UREA NITROGEN 16 mg/dL (7-20); CALCIUM 9.2 mg/dL (8.4-10.2); CARBON DIOXIDE 27 mmol/L (22-30); CHLORIDE 103 mmol/L (98-107); GLUCOSE 125 mg/dL (75-110); POTASSIUM 3.9 mmol/L (3.6-5.0); TOTAL PROTEIN 8.5 g/dL (6.3-8.2)
[2020-04-29 09:45] LABS: INTERNATIONAL RATION (INR) 2.87
[2020-04-29 09:47] LABS: D-DIMER 0.52 ug/mL (0.00-0.50)
[2020-04-29 09:51] LABS: APPEARANCE,URINE CLEAR; BILIRUBIN,URINE NEGATIVE (NEGATIVE); COLOR,URINE YELLOW; GLUCOSE, URINE NEGATIVE (NEGATIVE); KETONES,URINE NEGATIVE (NEGATIVE); LEUKOCYTE ESTERASE,URINE NEGATIVE (NEGATIVE); NITRITE,URINE NEGATIVE (NEGATIVE); PROTEIN,URINE 100 mg/dL (NEGATIVE); URINE SPECIFIC GRAVITY 1.017
[2020-04-29] MEDS ORDERED: FUROSEMIDE INJ/PF 100 MG/10 ML SDV IV ONE (10:23)
[2020-04-29 10:53] LABS: NT PRO BNP 4030 pg/mL (<125)
[2020-04-29 10:54] LABS: TROPONIN I < 0.012 ng/mL
--- NOTE | 2020-04-29 12:39 | EKG REPORT ---
SEVERITY:- ABNORMAL ECG - ATRIAL FIBRILLATION, V-RATE 69-81 REPOL ABNRM SUGGESTS ISCHEMIA, DIFFUSE LEADS : Confirmed by: Lincoln Bravo MD 29-Apr-2020 12:38:39
[2020-04-29] MEDS ORDERED: CYCLOBENZAPRINE HCL 10 MG TABLET PO PRN (14:02)
[2020-04-29] MEDS ORDERED: NITROGLYCERIN 0.4 MG/TAB 25 TAB/BOTTLE SL PRN (14:17)
[2020-04-29] MEDS ORDERED: HYDRALAZINE HCL INJ/PF 20 MG/1 ML SDV IV PRN (14:18)
[2020-04-29] MEDS ORDERED: MAG HYDROX/AL HYDROX/SIMETH SUSP 30 ML UDCUP PO PRN (14:21)
[2020-04-29] MEDS ORDERED: MAGNESIUM HYDROXIDE SUSP 30 ML UDCUP PO PRN (14:21)
[2020-04-29] MEDS ORDERED: ACETAMINOPHEN 325 MG TABLET PO PRN (14:21)
[2020-04-29] MEDS ORDERED: IPRATROPIUM/ALBUTEROL 0.5-2.5 MG/3 ML AMPUL NEB PRN (14:34)
--- NOTE | 2020-04-29 14:36 | PDOC H&P ---
History of Present Illness Admission Date/PCP: 04/29/20 13:16 JARED JENNINGS MD Patient complains of: Shortness of breath History of Present Illness: JIM MEJIA is a 64 year old male with a history of persistent atrial fibrillation and hypertension. He has diabetes mellitus, hepatitis C and a history of liver cancer. His primary care provider is Dr. Roa and he sees Dr. Sal for cardiology in [place]. The patient states that he has been hendricks ving occasional episodes where he feels short of breath but they will dissipate after 5 to 6 hours. Last night he woke up in the dyspnea was worse. He also felt fluttering in his chest and left shoulder. He did not describe it as pain or pressure. He was not diaphoretic. There was no nausea. As it was not resolving he presented to the emergency department. In the emergency department his blood pressure was quite elevated. He was in atrial fibrillation. His INR has been therapeutic. He did have a chest x-ray suggestive of heart failure and he does have cardiomegaly. His first troponin was negative at less than 0.012. He did respond to 80 mg of Lasix IV. The patient is a smoker and has smoked up until 3 weeks ago. He carries no diagnosis of COPD. I will have nebulizer treatments available if needed. The patient will be admitted. We will repeat an electrocardiogram (suggestion of ischemia laterally with underlying atrial fibrillation) as well as serial troponins. I have added topical nitroglycerin and Cardura at this time. The patient may very well switch to carvedilol and based on the echocardiogram we may be switching from his lisinopril as well. Past Medical History Cardiac Medical History: Reports: Hyperlipidema, Hypertension Denies: Coronary Artery Disease, Myocardial Infarction Pulmonary Medical History: Reports: Chronic Obstructive Pulmonary Disease (COPD) Denies: Asthma, Bronchitis, Pneumonia Neurological Medical History: Denies: Seizures Endocrine Medical History: Reports: Diabetes Mellitus Type 2 Malignancy Medical History: Reports: Liver Cancer GI Medical History: Reports: Hepatitis - C, Hiatal Hernia Musculoskeltal Medical History: Reports: Arthritis Hematology: Denies: Anemia, Sickle Cell Disease Past Surgical History Past Surgical History: Reports: Cardiac Catheterization - X2, no stents, Tonsillectomy - one tonsil, Other - cyst removal Denies: Pacemaker Social History Smoking Status: Former Smoker Electronic Cigarette use?: No Family History Family History: Reviewed & Not Pertinent, Other - Unknown Parental Family History Reviewed: Yes Children Family History Reviewed: Yes Sibling(s) Family History Reviewed.: Yes Medication/Allergy Home Medications: Amlodipine Besylate 10 mg PO QHS 03/16/17 Furosemide [Lasix] 40 mg PO DAILY 03/16/17 Glimepiride 4 mg PO QAM 03/16/17 Lisinopril 40 mg PO QHS 03/16/17 Metformin HCl 2,000 mg PO QAM 03/16/17 Metoprolol Succinate 100 mg PO QAM 03/16/17 Cyclobenzaprine HCl [Flexeril 10 mg Tablet] 5 mg PO Q8HP PRN 04/29/20 Escitalopram Oxalate [Lexapro 10 mg Tablet] 10 mg PO QHS 04/29/20 Lorazepam [Ativan 1 mg Tablet] 1 mg PO QHS 04/29/20 Metformin HCl [Glucophage] 1,000 mg PO QPM 04/29/20 Metoprolol Succinate [Toprol Xl 50 mg Tab.sr] 50 mg PO QHS 04/29/20 Oxybutynin Chloride [Oxybutynin Chloride ER] 10 mg PO DAILY 04/29/20 Warfarin Sodium [Coumadin] 5 mg PO SUMOWETHFRSA@0800 04/29/20 Warfarin Sodium [Coumadin] 10 mg PO TU@0800 04/29/20 Allergies/Adverse Reactions: No Known Allergies Allergy (Verified 03/26/18 07:58) Physical Exam Vital Signs: Temp Pulse Resp BP Pulse Ox 98.1 F 79 33 H 173/101 H 97 04/29/20 12:21 04/29/20 07:36 04/29/20 12:01 04/29/20 12:01 04/29/20 12:01 Intake & Output 04/28/20 04/29/20 04/30/20 06:59 06:59 06:59 Output Total 950 Balance -950 Weight 117.934 kg General appearance: PRESENT: cooperative, mild distress, well-developed Head exam: PRESENT: atraumatic, normocephalic Eye exam: PRESENT: conjunctiva pink, EOMI. ABSENT: scleral icterus Ear exam: PRESENT: normal external ear exam. ABSENT: bleeding, drainage Mouth exam: PRESENT: dry mucosa, tongue midline Neck exam: ABSENT: carotid bruit, JVD, lymphadenopathy Respiratory exam: PRESENT: clear to auscultation marlon, symmetrical, unlabored. ABSENT: rales, rhonchi, tachypnea, wheezes Cardiovascular exam: PRESENT: RRR, +S1, +S2. ABSENT: bradycardia, diastolic murmur, irregular rhythm, systolic murmur, tachycardia GI/Abdominal exam: PRESENT: normal bowel sounds, soft. ABSENT: tenderness Rectal exam: PRESENT: deferred Gentrourinary exam: ABSENT: indwelling catheter Extremities exam: ABSENT: pedal edema Musculoskeletal exam: PRESENT: ambulatory, normal inspection. ABSENT: deformity, dislocation Neurological exam: PRESENT: alert, awake, oriented to person, oriented to place, oriented to time, oriented to situation, CN II-XII grossly intact. ABSENT: altered, motor sensory deficit Psychiatric exam: PRESENT: appropriate affect. ABSENT: agitated, anxious Focused psych exam: ABSENT: delusional, paranoid, restlessness Skin exam: PRESENT: dry, normal color, warm. ABSENT: rash Results Laboratory Results: 04/29/20 08:22 04/29/20 08:22 04/29/20 04/29/20 04/29/20 08:22 08:22 08:22 WBC 8.4 RBC 3.89 L Hgb 10.7 L Hct 32.0 L MCV 82 MCH 27.6 MCHC 33.5 RDW 15.7 H Plt Count 257 Seg Neutrophils % 84.2 H Sodium 141.7 Potassium 3.9 Chloride 103 Carbon Dioxide 27 Anion Gap 12 BUN 16 Creatinine 0.92 Est GFR ( Amer) > 60 Glucose 125 H Calcium 9.2 Total Bilirubin 0.6 AST 49 Alkaline Phosphatase 117 C-Reactive Protein < 5.0 Total Protein 8.5 H Albumin 4.2 Urine Color Urine Appearance Urine pH Ur Specific [place] Urine Protein Urine Glucose (UA) Urine Ketones Urine Blood Urine Nitrite Ur Leukocyte Esterase Urine WBC (Auto) Urine RBC (Auto) 04/29/20 09:15 WBC RBC Hgb Hct MCV MCH MCHC RDW Plt Count Seg Neutrophils % Sodium Potassium Chloride Carbon Dioxide Anion Gap BUN Creatinine Est GFR ( Amer) Glucose Calcium Total Bilirubin AST Alkaline Phosphatase C-Reactive Protein Total Protein Albumin Urine Color YELLOW Urine Appearance CLEAR Urine pH 7.0 Ur Specific [place] 1.017 Urine Protein 100 H Urine Glucose (UA) NEGATIVE Urine Ketones NEGATIVE Urine Blood NEGATIVE Urine Nitrite NEGATIVE Ur Leukocyte Esterase NEGATIVE Urine WBC (Auto) 0 Urine RBC (Auto) 3 04/29/20 04/29/20 08:22 08:22 Creatine Kinase 55 Troponin I < 0.012 NT-Pro-B Natriuret Pep 4030 H Impressions: Chest X-Ray 04/29/20 07:56 IMPRESSION: Enlarged cardiac silhouette with central vascular congestion and mild interstitial edema. Patchy left retrocardiac opacities possibly asymmetric edema, atelectasis or infection. Assessment and Plan - Diagnosis (1) Acute respiratory failure with hypoxemia Is this a current diagnosis for this admission?: Yes (2) Longstanding persistent atrial fibrillation Is this a current diagnosis for this admission?: Yes (3) Uncontrolled hypertension Is this a current diagnosis for this admission?: Yes (4) Hyperglycemia due to type 2 diabetes mellitus Is this a current diagnosis for this admission?: Yes (5) Cardiomegaly Is this a current diagnosis for this admission?: Yes (6) Hepatitis C Is this a current diagnosis for this admission?: Yes (7) History of liver cancer Is this a current diagnosis for this admission?: Yes (8) Diabetes mellitus with neuropathy Is this a current diagnosis for this admission?: Yes (9) Congestive heart failure (CHF) Qualifiers: Heart failure type: unspecified Heart failure chronicity: acute Qualified Code(s): I50.9 - Heart failure, unspecified Is this a current diagnosis for this admission?: Yes - Plan Summary Summary: The patient's lungs seem to have cleared with the 80 mg of IV Lasix. We will continue oral Lasix and monitor electrolytes No echocardiogram on record. We will obtain an echocardiogram to assess the type of heart failure The patient recently quit smoking 3 weeks ago. It is likely that there is a component of COPD. We will have nebulizer treatments available. No steroids at this time. Monitor Accu-Cheks and treat with oral medications and sliding scale. Hypertension-blood pressure is still considerably out of control. We will add Cardura to his current regimen. Furosemide has been increased to 60 mg. Will monitor blood pressure and adjust medications accordingly. Hydralazine will be available if needed. No acute intervention for history of hepatocellular carcinoma or hepatitis C - Time Time Spent with patient: 35 or more minutes Medications reviewed and adjusted accordingly: Yes Anticipated Discharge Disposition: Home, Self Care Anticipated Discharge Timeframe: within 72 hours - Inpatient Certification Based on my medical assessment, after consideration of the patient's comorbidities, presenting symptoms, or acuity I expect that the services needed warrant INPATIENT care.: Yes I certify that my determination is in accordance with my understanding of Medicare's requirements for reasonable and necessary INPATIENT services [42 CFR 412.3e].: Yes Medical Necessity: Need Close Monitoring Due to Risk of Patient Decompensation, Need For Continuous Telemetry Monitoring Post Hospital Care: D/C or Transfer Summary
--- NOTE | 2020-04-29 16:58 | XCELERA REPORT ---
[address] [address] Transthoracic Echocardiogram Report Name: JIM MEJIA Age: 64 yrs Gender: Male : 1955 Patient Status: Inpatient Patient Location: [address] [place] [address] Study Date: 04/29/2020 03:26 PM History: CHF Height: 76 in Weight: 260 lb BSA: 2.5 m2 Procedure: A complete two-dimensional transthoracic echocardiogram was performed (2D, M-mode, spectral and color flow Doppler). The study was technically difficult with many images being suboptimal in quality. Reason For Study: Heart Failure Previous Evaluation: No previous studies were available. History: CHF. Ordering Physician: DEVONTE WISE Performed By: Chance Rhoades Interpretation Summary Left ventricular systolic function is mildly reduced. The Ejection Fraction estimate is 45-50% The right ventricle is normal in size and function. There is a trace amount of mitral regurgitation A bicuspid aortic valve cannot be excluded. There is no aortic valve stenosis There is a trace amount of aortic regurgitation The aortic root is mildly dilated There is a trace amount of tricuspid regurgitation There is moderate pulmonary hypertension by echo There is no pericardial effusion. MMode/2D Measurements & Calculations RVDd: 3.5 cm LVIDd: 5.7 cm FS: 31.4 % Ao root diam: 4.1 cm IVSd: 0.95 cm LVIDs: 3.9 cm EDV(Teich): 162.6 ml Ao root area: 13.3 cm2 LVPWd: 1.0 cm ESV(Teich): 67.4 ml LA dimension: 5.4 cm EF(Teich): 58.5 % Doppler Measurements & Calculations MV E max june: MV P1/2t max june: Ao V2 max: AI max june: 119.4 cm/sec 127.0 cm/sec 95.6 cm/sec 297.4 cm/sec MV A max june: MV P1/2t: 61.1 msec Ao max PG: AI max P.0 cm/sec MVA(P1/2t): 3.6 cm2 3.7 mmHg 35.4 mmHg MV E/A: 3.0 MV dec slope: AI dec slope: 191.1 cm/sec2 609.0 cm/sec2 AI P1/2t: MV dec time: 0.20 sec 455.7 msec LV V1 max PG: PA V2 max: TR max june: AV P1/2t-pr_phl: 2.8 mmHg 74.0 cm/sec 308.4 cm/sec 455.7 msec LV V1 max: PA max P.2 mmHg TR max P.4 cm/sec 38.0 mmHg MV P1/2t-pr_phl: 61.1 msec Left Ventricle The left ventricle is mildly dilated. There is mild concentric left ventricular hypertrophy. Left ventricular systolic function is mildly reduced. The Ejection Fraction estimate is 45-50%. LV diastolic function not assessed. Regional wall motion abnormalities cannot be excluded due to limited visualization. Right Ventricle The right ventricle is normal in size and function. Atria The right atrium is borderline dilated. The left atrium is moderately dilated. Mitral Valve Calcified mitral apparatus. There is no evidence of mitral valve prolapse. There is no mitral valve stenosis. There is a trace amount of mitral regurgitation. Aortic Valve The aortic valve is sclerotic and shows some degree of functional abnormality. The aortic valve is mildly calcified. The aortic valve opens well. A bicuspid aortic valve cannot be excluded. There is no aortic valve stenosis. There is a trace amount of aortic regurgitation. Tricuspid Valve The tricuspid valve is normal in structure and function. There is a trace amount of tricuspid regurgitation. Right ventricular systolic pressure is estimated to be elevated at 40-50mmHg. There is moderate pulmonary hypertension by echo. Great Vessels The aortic root is mildly dilated. The inferior vena cava appeared dilated and decreased < 50% with respiration (RAP 15-20 mmHg). Effusions There is no pericardial effusion. : DEVONTE WISE Anil
[2020-04-29] MEDS ORDERED: METFORMIN HCL 1000 MG PO SCH (18:00)
[2020-04-29 19:35] LABS: HEMATOCRIT 29.7 % (37.9-51.0); MEAN CORPUSCULAR HEMOGLOBIN 27.6 pg (27.0-33.4); MEAN CORPUSCULAR HGB CONC 33.6 g/dL (32.0-36.0); MEAN CORPUSCULAR VOLUME 82 fl (80-97); PLATELET COUNT 231 10^3/uL (150-450); RED BLOOD COUNT 3.62 10^6/uL (4.35-5.55); RED CELL DISTRIBUTION WIDTH 15.8 % (11.5-14.0); WHITE BLOOD COUNT 7.5 10^3/uL (4.0-10.5)
[2020-04-29] MEDS: NITROGLYCERIN 10 MG (0.4 MG/HR) PATCH.TD24 TD SCH (19:35)
[2020-04-29] MEDS: METFORMIN HCL 500 MG TABLET PO SCH (19:35)
[2020-04-29] MEDS: OXYBUTYNIN CHLORIDE 5 MG TABLET PO SCH (21:11)
[2020-04-29] MEDS: DOXAZOSIN MESYLATE 2 MG TABLET PO SCH (21:12)
[2020-04-29 21:49] LABS: APPEARANCE,URINE CLEAR; BILIRUBIN,URINE NEGATIVE (NEGATIVE); COLOR,URINE YELLOW; GLUCOSE, URINE NEGATIVE (NEGATIVE); KETONES,URINE NEGATIVE (NEGATIVE); LEUKOCYTE ESTERASE,URINE NEGATIVE (NEGATIVE); NITRITE,URINE NEGATIVE (NEGATIVE); PROTEIN,URINE 30 mg/dL (NEGATIVE); URINE SPECIFIC GRAVITY 1.014
[2020-04-29] MEDS ORDERED: LISINOPRIL 10 MG TABLET PO SCH (22:00)
[2020-04-29] MEDS ORDERED: ESCITALOPRAM OXALATE 10 MG TABLET PO SCH (22:00)
[2020-04-29] MEDS ORDERED: LISINOPRIL 40 MG PO SCH (22:00)
[2020-04-29] MEDS ORDERED: AMLODIPINE BESYLATE 10 MG TABLET PO SCH (22:00)
[2020-04-29] MEDS ORDERED: WARFARIN SODIUM 5 MG TABLET PO SCH (22:00)
[2020-04-30] MEDS ORDERED: PANTOPRAZOLE SODIUM 20 MG TABLET.DR PO SCH (06:00)
[2020-04-30 07:04] LABS: INTERNATIONAL RATION (INR) 3.01; PROTHROMBIN TIME 31.1 SEC (11.4-15.4)
[2020-04-30 07:20] LABS: ANION GAP 16 (5-19); BLOOD UREA NITROGEN 21 mg/dL (7-20); CALCIUM 7.7 mg/dL (8.4-10.2); CARBON DIOXIDE 21 mmol/L (22-30); CHLORIDE 102 mmol/L (98-107); CHOLESTEROL 152.75 mg/dL (0-200); GLUCOSE 98 mg/dL (75-110); POTASSIUM 3.3 mmol/L (3.6-5.0); TRIGLYCERIDES 128 mg/dL (<150)
[2020-04-30 07:31] LABS: DIRECT LDL 122 mg/dL (<100)
[2020-04-30 07:39] LABS: TROPONIN I 0.013 ng/mL
[2020-04-30] MEDS ORDERED: (PENDING PHARMACY ID) (Metoprolol Succinate [Metoprolol Succinate] 100 MG Tab.Er.24h) PO SCH (08:00)
[2020-04-30] MEDS ORDERED: GLIMEPIRIDE 4 MG TABLET PO SCH (08:00)
[2020-04-30] MEDS ORDERED: WARFARIN SODIUM 5 MG PO SCH (08:00)
[2020-04-30] MEDS ORDERED: METOPROLOL SUCCINATE 50 MG TAB.SR.24H PO SCH (08:00)
[2020-04-30] MEDS: OXYBUTYNIN CHLORIDE 5 MG TABLET PO SCH (09:02)
[2020-04-30] MEDS: DOXAZOSIN MESYLATE 2 MG TABLET PO SCH (09:02)
[2020-04-30] MEDS: METFORMIN HCL 500 MG TABLET PO SCH (09:02)
[2020-04-30] MEDS: NITROGLYCERIN 10 MG (0.4 MG/HR) PATCH.TD24 TD SCH (09:03)
--- NOTE | 2020-04-30 09:21 | EKG REPORT ---
SEVERITY:- ABNORMAL ECG - ATRIAL FIBRILLATION PROBABLE LVH WITH SECONDARY REPOL ABNRM : Confirmed by: Lincoln Bravo MD 30-Apr-2020 09:20:38
[2020-04-30] MEDS ORDERED: ASPIRIN 81 MG TABLET, ENT COATED PO SCH (10:00)
[2020-04-30] MEDS ORDERED: (PENDING PHARMACY ID) (Oxybutynin Chloride [Oxybutynin Chloride Er] 10 MG Tab.Er.24) PO SCH (10:00)
[2020-04-30] MEDS ORDERED: FUROSEMIDE 40 MG TABLET PO SCH ×2 (10:00)
[2020-04-30] MEDS ORDERED: POTASSIUM CHLORIDE 10 MEQ TABLET.ER PO ONE (10:49)
--- NOTE | 2020-04-30 11:49 | PDOC DISCHARGE SUMMARY ---
Impression - Admit/DC Date/PCP Admission Date/Primary Care Provider: 04/29/20 13:16 JARED JENNINGS MD Discharge Date: 04/30/20 - Discharge Diagnosis (1) Acute respiratory failure with hypoxemia Is this a current diagnosis for this admission?: Yes (2) Longstanding persistent atrial fibrillation Is this a current diagnosis for this admission?: Yes (3) Uncontrolled hypertension Is this a current diagnosis for this admission?: Yes (4) Hyperglycemia due to type 2 diabetes mellitus Is this a current diagnosis for this admission?: Yes (5) Cardiomegaly Is this a current diagnosis for this admission?: Yes (6) Hepatitis C Is this a current diagnosis for this admission?: Yes (7) History of liver cancer Is this a current diagnosis for this admission?: Yes (8) Diabetes mellitus with neuropathy Is this a current diagnosis for this admission?: Yes (9) Congestive heart failure (CHF) Is this a current diagnosis for this admission?: Yes - Assessment Summary: The patient's lungs seem to have cleared with the 80 mg of IV Lasix. We will continue oral Lasix and monitor electrolytes No echocardiogram on record. We will obtain an echocardiogram to assess the type of heart failure The patient recently quit smoking 3 weeks ago. It is likely that there is a component of COPD. We will have nebulizer treatments available. No steroids at this time. Monitor Accu-Cheks and treat with oral medications and sliding scale. Hypertension-blood pressure is still considerably out of control. We will add Cardura to his current regimen. Furosemide has been increased to 60 mg. Will monitor blood pressure and adjust medications accordingly. Hydralazine will be available if needed. No acute intervention for history of hepatocellular carcinoma or hepatitis C - Additional Information Discharge Diet: Cardiac, Diabetic Discharge Activity: Activity As Tolerated, Other - Referring to outpatient cardiac rehab Referrals: JARED JENNINGS MD [Primary Care Provider] - Follow up as needed Home Medications: Amlodipine Besylate 10 mg PO QHS 03/16/17 Furosemide [Lasix] 40 mg PO DAILY 03/16/17 Glimepiride 4 mg PO QAM 03/16/17 Lisinopril 40 mg PO QHS 03/16/17 Metformin HCl 2,000 mg PO QAM 03/16/17 Cyclobenzaprine HCl [Flexeril 10 mg Tablet] 5 mg PO Q8HP PRN 04/29/20 Escitalopram Oxalate [Lexapro 10 mg Tablet] 10 mg PO QHS 04/29/20 Lorazepam [Ativan 1 mg Tablet] 1 mg PO QHS 04/29/20 Metformin HCl [Glucophage] 1,000 mg PO QPM 04/29/20 Oxybutynin Chloride [Oxybutynin Chloride ER] 10 mg PO DAILY 04/29/20 Warfarin Sodium [Coumadin] 5 mg PO SUMOWETHFRSA@0800 04/29/20 Aspirin [Ecotrin 81 mg EC Tablet] 81 mg PO DAILY tabec 04/30/20 Metoprolol Succinate [Toprol Xl 50 mg Tab.sr] 200 mg PO QAM tab.sr.24h 04/30/20 History of Present Illiness History of Present Illness: JIM MEJIA is a 64 year old male with a history of persistent atrial fibrillation and hypertension. He has diabetes mellitus, hepatitis C and a history of liver cancer. His primary care provider is Dr. Roa and he sees Dr. Sal for cardiology in [place]. The patient states that he has been having occasional episodes where he feels short of breath but they will dissipate after 5 to 6 hours. Last night he woke up in the dyspnea was worse. He also felt fluttering in his chest and left shoulder. He did not describe it as pain or pressure. He was not diaphoretic. There was no nausea. As it was not resolving he presented to the emergency department. In the emergency dep artment his blood pressure was quite elevated. He was in atrial fibrillation. His INR has been therapeutic. He did have a chest x-ray suggestive of heart failure and he does have cardiomegaly. His first troponin was negative at less than 0.012. He did respond to 80 mg of Lasix IV. The patient is a smoker and has smoked up until 3 weeks ago. He carries no diagnosis of COPD. I will have nebulizer treatments available if needed. The patient will be admitted. We will repeat an electrocardiogram (suggestion of ischemia laterally with underlying atrial fibrillation) as well as serial troponins. I have added topical nitroglycerin and Cardura at this time. The patient may very well switch to carvedilol and based on the echocardiogram we may be switching from his lisinopril as well. Hospital Course Hospital Course: Unremarkable course with excellent turnaround. Echocardiogram did reveal an ejection fraction of 45 to 50%. Continue current medications at the time of discharge. Physical Exam Vital Signs: Temp Pulse Resp BP Pulse Ox 98.4 F 74 16 141/94 H 91 L 04/30/20 08:29 04/30/20 07:32 04/30/20 07:32 04/30/20 07:32 04/30/20 07:32 Intake & Output 04/29/20 04/30/20 05/01/20 06:59 06:59 06:59 Intake Total 596 Output Total 950 Balance -354 Weight 116.755 kg General appearance: PRESENT: no acute distress Respiratory exam: PRESENT: clear to auscultation marlon, symmetrical, unlabored. ABSENT: rales, rhonchi, tachypnea, wheezes Cardiovascular exam: PRESENT: irregular rhythm. ABSENT: bradycardia, tachycardia Neurological exam: PRESENT: alert, awake, oriented to person, oriented to place, oriented to time, oriented to situation, CN II-XII grossly intact Psychiatric exam: PRESENT: appropriate affect. ABSENT: agitated, anxious Results Laboratory Results: WBC 7.5 10^3/uL (4.0-10.5) 04/29/20 18:13 RBC 3.62 10^6/uL (4.35-5.55) L 04/29/20 18:13 Hgb 10.0 g/dL (13.5-17.0) L 04/29/20 18:13 Hct 29.7 % (37.9-51.0) L 04/29/20 18:13 MCV 82 fl (80-97) 04/29/20 18:13 MCH 27.6 pg (27.0-33.4) 04/29/20 18:13 MCHC 33.6 g/dL (32.0-36.0) 04/29/20 18:13 RDW 15.8 % (11.5-14.0) H 04/29/20 18:13 Plt Count 231 10^3/uL (150-450) 04/29/20 18:13 Lymph % (Auto) 7.3 % (13-45) L 04/29/20 08:22 Schley % (Auto) 6.6 % (3-13) 04/29/20 08:22 Eos % (Auto) 1.4 % (0-6) 04/29/20 08:22 Baso % (Auto) 0.5 % (0-2) 04/29/20 08:22 Absolute Neuts (auto) 7.1 10^3/uL (1.7-8.2) 04/29/20 08:22 Absolute Lymphs (auto) 0.6 10^3/uL (0.5-4.7) 04/29/20 08:22 Absolute Monos (auto) 0.6 10^3/uL (0.1-1.4) 04/29/20 08:22 Absolute Eos (auto) 0.1 10^3/uL (0.0-0.6) 04/29/20 08:22 Absolute Basos (auto) 0.0 10^3/uL (0.0-0.2) 04/29/20 08:22 Seg Neutrophils % 84.2 % (42-78) H 04/29/20 08:22 ESR 51 mm/hr (0-20) H 04/29/20 08:22 PT 31.1 SEC (11.4-15.4) H 04/30/20 06:32 INR 3.01 04/30/20 06:32 D-Dimer 0.52 ug/mL (0.00-0.50) H 04/29/20 08:22 Sodium 138.5 mmol/L (137-145) 04/30/20 06:32 Potassium 3.3 mmol/L (3.6-5.0) L 04/30/20 06:32 Chloride 102 mmol/L (98-107) 04/30/20 06:32 Carbon Dioxide 21 mmol/L (22-30) L 04/30/20 06:32 Anion Gap 16 (5-19) 04/30/20 06:32 BUN 21 mg/dL (7-20) H 04/30/20 06:32 Creatinine 0.85 mg/dL (0.52-1.25) 04/30/20 06:32 Est GFR ( Amer) > 60 (>60) 04/30/20 06:32 Est GFR (MDRD) Non-Af > 60 (>60) 04/30/20 06:32 Glucose 98 mg/dL (75-110) 04/30/20 06:32 Hemoglobin A1c % 6.2 % (4.7-6.0) H 04/30/20 06:32 Calcium 7.7 mg/dL (8.4-10.2) L 04/30/20 06:32 Magnesium 1.3 mg/dL (1.6-2.3) L 04/30/20 06:32 Total Bilirubin 0.6 mg/dL (0.2-1.3) 04/29/20 08:22 Direct Bilirubin 0.3 mg/dL (0.0-0.4) 04/29/20 08:22 Neonat Total Bilirubin Not Reportable 04/29/20 08:22 Neonat Direct Bilirubin Not Reportable 04/29/20 08:22 Neonat Indirect Bili Not Reportable 04/29/20 08:22 AST 49 U/L (17-59) 04/29/20 08:22 ALT 54 U/L (<50) H 04/29/20 08:22 Alkaline Phosphatase 117 U/L (38-126) 04/29/20 08:22 Creatine Kinase 55 U/L (55-170) 04/29/20 08:22 Troponin I 0.013 ng/mL 04/30/20 06:32 C-Reactive Protein < 5.0 mg/L (<10.0) 04/29/20 08:22 NT-Pro-B Natriuret Pep 5120 pg/mL (<125) H 04/30/20 06:32 Total Protein 8.5 g/dL (6.3-8.2) H 04/29/20 08:22 Albumin 4.2 g/dL (3.5-5.0) 04/29/20 08:22 Triglycerides 128 mg/dL (<150) 04/30/20 06:32 Cholesterol 152.75 mg/dL (0-200) 04/30/20 06:32 LDL Cholesterol Direct 122 mg/dL (<100) H 04/30/20 06:32 VLDL Cholesterol 26.0 mg/dL (10-31) 04/30/20 06:32 HDL Cholesterol 17 mg/dL (>40) L 04/30/20 06:32 Urine Color YELLOW 04/29/20 20:48 Urine Appearance CLEAR 04/29/20 20:48 Urine pH 7.0 (5.0-9.0) 04/29/20 20:48 Ur Specific [place] 1.014 04/29/20 20:48 Urine Protein 30 mg/dL (NEGATIVE) H 04/29/20 20:48 Urine Glucose (UA) NEGATIVE mg/dL (NEGATIVE) 04/29/20 20:48 Urine Ketones NEGATIVE mg/dL (NEGATIVE) 04/29/20 20:48 Urine Blood NEGATIVE (NEGATIVE) 04/29/20 20:48 Urine Nitrite NEGATIVE (NEGATIVE) 04/29/20 20:48 Urine Bilirubin NEGATIVE (NEGATIVE) 04/29/20 20:48 Urine Urobilinogen 4.0 mg/dL (<2.0) H 04/29/20 20:48 Ur Leukocyte Esterase NEGATIVE (NEGATIVE) 04/29/20 20:48 Urine WBC (Auto) 1 /HPF 04/29/20 20:48 Urine RBC (Auto) 2 /HPF 04/29/20 20:48 Squamous Epi Cells Auto <1 /HPF 04/29/20 20:48 Urine Ascorbic Acid NEGATIVE (NEGATIVE) 04/29/20 20:48 04/29/20 04/29/20 04/30/20 08:22 18:13 00:20 Troponin I < 0.012 0.022 0.023 NT-Pro-B Natriuret Pep 4030 H 04/30/20 06:32 Troponin I 0.013 NT-Pro-B Natriuret Pep 5120 H Impressions: Chest X-Ray 04/29/20 07:56 IMPRESSION: Enlarged cardiac silhouette with central vascular congestion and mild interstitial edema. Patchy left retrocardiac opacities possibly asymmetric edema, atelectasis or infection. Plan Health Concerns: Atrial fibrillation with hypertension, systolic heart failure in a patient with underlying diabetes, hepatitis C and history of hepatocellular carcinoma Plan of Treatment: Return to previous medications. History of cardiac/diabetic diet Referred to outpatient cardiac rehab to initiate an exercise program that the patient should continue after completion of the program Continue to abstain from tobacco Goals: Improved control of blood pressure and pulse as well as comprehensive treatment plan for systolic heart failure. Follow-up with hepatology regarding hepatitis C. Continue to follow-up with [facility] for the hepatocellular carcinoma Time Spent: Greater than 30 Minutes Stroke Is this a Stroke Patient?: No Acute Heart Failure Is this a Heart Failure Patient?: Yes Documentation of LVEF assessment?: Yes LVEF: LVEF Greater Than 40% Anticoagulant Therapy: Yes Discharged on Evidence-Based Beta Blockers: Yes Reason(s) not discharged on ARNI: ACEI use within the prior 36 hours Discharged on ARB?: No-document contraindications Reason(s) not Discharged on ARB: Other ARB Reason - Other: Discharged on lisinopril Discharged on ACEI?: Yes For LVEF <35%, discharged on Aldosterone Antagonist?: N/A (LVEF > or = 35%)
[2020-04-30 13:48] VITALS: BP 159/80
[2020-05-01] MEDS ORDERED: POTASSIUM CHLORIDE 10 MEQ TABLET.ER PO SCH (10:00)
[2020-05-01] MEDS ORDERED: FUROSEMIDE 40 MG TABLET PO SCH (10:00)
[2020-05-05] MEDS ORDERED: WARFARIN SODIUM 5 MG PO SCH (08:00)
== END 2020-04-30 12:35 | disposition home or self-care (01) | DRG 292 ==
LOC: ER 07:29 → EH 13:16 → 4S 15:17
PROVIDERS: ADMIT Hospitalist; ATTEND Hospitalist
DX: I50.23 Acute on chronic systolic (congestive) heart failure (principal); I48.19 Other persistent atrial fibrillation; I11.0 Hypertensive heart disease with heart failure; E78.5 Hyperlipidemia, unspecified; B19.20 Unspecified viral hepatitis C without hepatic coma; I10 Essential (primary) hypertension; J44.9 Chronic obstructive pulmonary disease, unspecified; E11.65 Type 2 diabetes mellitus with hyperglycemia; E11.40 Type 2 diabetes mellitus with diabetic neuropathy, unspecified; Z85.05 Personal history of malignant neoplasm of liver; Z87.891 Personal history of nicotine dependence; Z79.01 Long term (current) use of anticoagulants; Z79.899 Other long term (current) drug therapy; Z79.84 Long term (current) use of oral hypoglycemic drugs
CPT/HCPCS: 36415; 71045; 80048; 80053; 80061; 81001; 82550; 83036; 83735; 83880; 84484; 85025; 85379; 85610; 85652; 86140; 93005; 93010; 93306; 96374; 99285; J1940; J3490

== ENCOUNTER 2020-05-16 11:18 | Emergency (ER) | payer MEDICARE ==
--- NOTE | 2020-05-16 12:16 | ER Document Report ---
ED Medical Screen (RME) - General Chief Complaint: Leg Pain Stated Complaint: RIGHT LEG PAIN/POST STENT PLACEMENT Time Seen by Provider: 05/16/20 12:12 Primary Care Provider: IVANA FARIAS NP [Primary Care Provider] - Follow up as needed TRAVEL OUTSIDE OF THE [place] IN LAST 30 DAYS: No - HPI Notes: 05/16/20 12:14 64-year-old male with recent 2 stents at [facility] presents to ED for evaluation of possible DVT to the right posterior thigh. Patient reports that he has tenderness to palpation present. Patient notes that he has swelling and warmth. Patient had the area outlined with a marker for where the ecchymosis should be however it is extending. Patient is already on Coumadin and on Plavix. He has not returned for follow-up yet. Denies other complaints at this time. - Related Data Allergies/Adverse Reactions: No Known Allergies Allergy (Verified 03/26/18 07:58) Past Medical History - Social History Chew tobacco use (# tins/day): No Frequency of alcohol use: None Drug Abuse: None - Past Medical History Cardiac Medical History: Reports: Hx Hypercholesterolemia, Hx Hypertension Denies: Hx Coronary Artery Disease, Hx Heart Attack Pulmonary Medical History: Reports: Hx COPD Denies: Hx Asthma, Hx Bronchitis, Hx Pneumonia Neurological Medical History: Denies: Hx Cerebrovascular Accident, Hx Seizures Endocrine Medical History: Reports: Hx Diabetes Mellitus Type 2 Renal/ Medical History: Denies: Hx Peritoneal Dialysis Malignancy Medical History: Reports Hx Liver Cancer GI Medical History: Reports: Hx Hepatitis - C, Hx Hiatal Hernia. Denies: Hx Ulcer Musculoskeltal Medical History: Reports Hx Arthritis Psychiatric Medical History: Denies: Hx Depression Infectious Medical History: Reports: Hx Hepatitis - C Past Surgical History: Reports: Hx Cardiac Catheterization - X2, no stents, Hx Tonsillectomy - one tonsil, Other - cyst removal. Denies: Hx Open Heart Surgery, Hx Pacemaker - Immunizations Hx Diphtheria, Pertussis, Tetanus Vaccination: Yes - NOT UP TO DATE Physical Exam - Vital signs Vitals: Temp Pulse Resp BP Pulse Ox 98.4 F 68 20 140/84 H 97 05/16/20 11:26 05/16/20 11:26 05/16/20 11:26 05/16/20 11:26 05/16/20 11:26 Unable to fully visualize the area at this time. Patient does have tenderness to palpation along the posterior aspect of the right thigh. I do not palpate any tenderness to the posterior or anterior aspect of the calf. Course - Vital Signs Vital signs: Temp Pulse Resp BP Pulse Ox 98.4 F 68 20 140/84 H 97 05/16/20 11:26 05/16/20 11:26 05/16/20 11:26 05/16/20 11:26 05/16/20 11:26 Doctor's Discharge - Discharge Referrals: IVANA FARIAS NP [Primary Care Provider] - Follow up as needed
[2020-05-16 15:11] LABS: ALBUMIN 3.9 g/dL (3.5-5.0); ALKALINE PHOSPHATASE 87 U/L (38-126); ANION GAP 11 (5-19); ASPARTATE AMINO TRANSFERASE 43 U/L (17-59); BILIRUBIN,DIRECT 0.3 mg/dL (0.0-0.4); BILIRUBIN,TOTAL 0.6 mg/dL (0.2-1.3); BLOOD UREA NITROGEN 19 mg/dL (7-20); CALCIUM 9.4 mg/dL (8.4-10.2); CARBON DIOXIDE 25 mmol/L (22-30); CHLORIDE 107 mmol/L (98-107); CREATINE KINASE 86 U/L (55-170); GLUCOSE 107 mg/dL (75-110); POTASSIUM 4.1 mmol/L (3.6-5.0); TOTAL PROTEIN 7.9 g/dL (6.3-8.2)
--- NOTE | 2020-05-16 15:12 | RADIOLOGY REPORT (SQ) ---
EXAM DESCRIPTION: ARTERIAL LOWER EXTREM UNILAT IMAGES COMPLETED DATE/TIME: 05/16/2020 2:25 pm REASON FOR STUDY: RLE PAIN, S/P CARDIAC STENT PLACEMENT COMPARISON: None. TECHNIQUE: Dynamic and static melchor scale and color images acquired of the right lower extremity lamar jose. Additional selected spectral images recorded. LIMITATIONS: None. FINDINGS: RIGHT LEG: ABIS: Normal, over 1.0. INFLOW ARTERIES: Normal, no obstruction evident. FEMORAL ARTERIES:6 x 1.6 x 1.5 cm partially thrombosed common femoral artery pseudoaneurysm.Multiphas ic waveforms. Normal, no velocity elevation to suggest focal stenosis. Normal color Doppler evaluatio n. POPLITEAL ARTERY:Multiphasic waveforms. Normal, no velocity elevation to suggest focal stenosis. Norm al color Doppler evaluation. No aneurysm. PATENT TIBIOPERONEAL TRUNK AND 3 VESSEL RUNOFF: Yes, normal vessels. TBI: Not performed. OTHER: No other significant finding. IMPRESSION: 6 x 1.6 x 1.5 cm partially thrombosed right common femoral artery pseudoaneurysm. TECHNICAL DOCUMENTATION: JOB ID: [id number] 2010 [employer]- All Rights Reserved Reading location - IP/workstation name: [email or web address]
[2020-05-16 15:13] LABS: ABSOLUTE BASOPHILS # (AUTO) 0.1 10^3/uL (0.0-0.2); ABSOLUTE EOSINOPHILS # (AUTO) 0.3 10^3/uL (0.0-0.6); ABSOLUTE LYMPHOCYTES (AUTO) 0.7 10^3/uL (0.5-4.7); ABSOLUTE MONOCYTES (AUTO) 0.7 10^3/uL (0.1-1.4); ABSOLUTE NEUT (AUTO) 4.1 10^3/uL (1.7-8.2); BASOPHILS % (AUTO) 0.9 % (0-2); HEMATOCRIT 27.3 % (37.9-51.0); HEMOGLOBIN 8.9 g/dL (13.5-17.0); LYMPHOCYTES % (AUTO) 12.3 % (13-45); MEAN CORPUSCULAR HGB CONC 32.7 g/dL (32.0-36.0); MEAN CORPUSCULAR VOLUME 83 fl (80-97); MONOCYTES % (AUTO) 12.3 % (3-13); PLATELET COUNT 224 10^3/uL (150-450); RED CELL DISTRIBUTION WIDTH 16.3 % (11.5-14.0); SEGMENTED NEUTROPHILS % (AUTO) 69.5 % (42-78); TOTAL CELLS COUNTED % (AUTO) 100 %; WHITE BLOOD COUNT 5.9 10^3/uL (4.0-10.5)
[2020-05-16 15:16] LABS: INTERNATIONAL RATION (INR) 1.24; PROTHROMBIN TIME 15.8 SEC (11.4-15.4)
[2020-05-16] MEDS ORDERED: NORMAL SALINE 1000 ML 500 ML IV ONE (17:57)
--- NOTE | 2020-05-16 19:15 | ER Document Report ---
Entered by KERRY MARVIN SCRIBE 05/16/20 1414 Acting as scribe for:VERN ESTEBAN MD ED Extremity Problem, Lower - General Chief Complaint: Leg Pain Stated Complaint: RIGHT LEG PAIN/POST STENT PLACEMENT Time Seen by Provider: 05/16/20 12:12 Primary Care Provider: IVANA FARIAS NP [Primary Care Provider] - Follow up as needed Information source: Patient Notes: This 64 year old male patient presents to the emergency department today with complaints of bruising and pain to the right lower extremity. Patient had a cardiac catheterization on Monday at [facility] through his right groin but they were unable to get through the calcification at that time. On Monday they attempted through his wrist and performed some other type of procedure and were able to put 2 stents in his heart. Patient has since developed pain, discoloration, and swelling to the site of the RLE catheterization. TRAVEL OUTSIDE OF THE [place] IN LAST 30 DAYS: No - Related Data Allergies/Adverse Reactions: No Known Allergies Allergy (Verified 03/26/18 07:58) Past Medical History - General Information source: Patient - Social History Smoking Status: Never Smoker Cigarette use (# per day): No Chew tobacco use (# tins/day): No Frequency of alcohol use: None Drug Abuse: None Lives with: Family Family History: Reviewed & Not Pertinent, Other - Unknown - Past Medical History Cardiac Medical History: Reports: Hx Hypercholesterolemia, Hx Hypertension Denies: Hx Coronary Artery Disease, Hx Heart Attack Pulmonary Medical History: Reports: Hx COPD Denies: Hx Asthma, Hx Bronchitis, Hx Pneumonia Neurological Medical History: Denies: Hx Cerebrovascular Accident, Hx Seizures Endocrine Medical History: Reports: Hx Diabetes Mellitus Type 2 Renal/ Medical History: Denies: Hx Peritoneal Dialysis Malignancy Medical History: Reports Hx Liver Cancer GI Medical History: Reports: Hx Hepatitis - C, Hx Hiatal Hernia. Denies: Hx Ulcer Musculoskeletal Medical History: Reports Hx Arthritis Psychiatric Medical History: Denies: Hx Depression Infectious Medical History: Reports: Hx Hepatitis - C Past Surgical History: Reports: Hx Cardiac Catheterization - X2, no stents, Hx Tonsillectomy - one tonsil, Other - cyst removal. Denies: Hx Open Heart Surgery, Hx Pacemaker - Immunizations Hx Diphtheria, Pertussis, Tetanus Vaccination: Yes - NOT UP TO DATE Review of Systems - Review of Systems Constitutional: No symptoms reported EENT: No symptoms reported Cardiovascular: No symptoms reported Respiratory: No symptoms reported Gastrointestinal: No symptoms reported Genitourinary: No symptoms reported Male Genitourinary: No symptoms reported Musculoskeletal: See HPI, Other - RLE pain, bruising Skin: No symptoms reported Hematologic/Lymphatic: No symptoms reported Neurological/Psychological: No symptoms reported -: Yes All other systems reviewed and negative Physical Exam - Vital signs Vitals: Temp Pulse Resp BP Pulse Ox 98.4 F 68 20 140/84 H 97 05/16/20 11:26 05/16/20 11:26 05/16/20 11:26 05/16/20 11:05/16/20 11:26 - General General appearance: Appears well, Alert In distress: None - HEENT Head: Normocephalic, Atraumatic Eyes: Normal Pupils: PERRL - Respiratory Respiratory status: No respiratory distress Breath sounds: Normal - Cardiovascular Rhythm: Regular - Abdominal Inspection: Obese - Back Back: Normal - Extremities General upper extremity: Normal inspection - There is no bruising or swelling related to the cardiac catheterization that was done. General lower extremity: Normal temperature, Other - The right proximal thigh has a circumferential band of ecchymosis, it is somewhat swollen and tender in the groin region. Foot: Normal - Both feet are warm, with good capillary refill to the toes. - Neurological Neuro grossly intact: Yes - Psychological Associated symptoms: Normal affect, Normal mood - Skin Skin Temperature: Warm Skin Moisture: Dry Skin Color: Normal Course - Re-evaluation Re-evalutation: 05/16/20 15:48 The case was discussed with Dr. Wilkerson vascular surgeon at [facility], and due to bed challenges, he suggested the patient be admitted to the cardiac service as a complication where he was more likely get a bed. I discussed the case with Dr. Olivarez from the cardiology service and the patient was excepted. I was just notified that there is a bed available at this time. 05/16/20 19:19 Transport is here to take the patient to [facility]. He does report that his groin is hurting a little bit more, and his notices that the bruising seems to be extending further down the thigh. - Vital Signs Vital signs: Temp Pulse Resp BP Pulse Ox 98.6 F 78 14 146/94 H 98 05/16/20 19:20 05/16/20 19:20 05/16/20 19:20 05/16/20 19:20 05/16/20 19:20 - Laboratory Results Result Diagrams: 05/16/20 14:33 05/16/20 14:33 Laboratory Results Interpreted: 05/16/20 05/16/20 05/16/20 14:33 14:33 14:33 RBC 3.30 L Hgb 8.9 L Hct 27.3 L RDW 16.3 H Lymph % (Auto) 12.3 L PT 15.8 H Creatinine 1.37 H Est GFR (MDRD) Non-Af 52 L Critical Laboratory Results Reviewed: No Critical Results - Radiology Results Radiology Results Interpreted: 05/16/20 15:47 Arterial Doppler of the right leg shows a 6.0 x 1.6 x 1.5 cm partially thrombosed common femoral artery pseudoaneurysm. There is no velocity elevation to suggest focal stenosis. Popliteal artery shows multiphasic waveforms nothing to suggest focal stenosis. Patent tibioperoneal trunk and three-vessel runoff. Critical Radiology Results Reviewed: Yes Attending or Supervising Physician who Reviewed Radiology: VERN ESTEBAN Discharge - Discharge Clinical Impression: Femoral artery pseudo-aneurysm, right Condition: Stable Disposition: [facility] Referrals: IVANA FARIAS NP [Primary Care Provider] - Follow up as needed I personally performed the services described in the documentation, reviewed and edited the documentation which was dictated to the scribe in my presence, and it accurately records my words and actions.
[2020-05-16 19:27] VITALS: BP 146/94
== END 2020-05-16 19:32 | disposition short-term general hospital (02) ==
LOC: ER 11:18
DX: I72.4 Aneurysm of artery of lower extremity (principal); M79.604 Pain in right leg; Z98.890 Other specified postprocedural states; I10 Essential (primary) hypertension; J44.9 Chronic obstructive pulmonary disease, unspecified; E11.9 Type 2 diabetes mellitus without complications
CPT/HCPCS: 99285; 36415; 82550; 85025; 85610; 80053; 93926; J7030